=== PATIENT | male | born 1960 | race Caucasian/White ===

== ENCOUNTER 2023-11-12 08:04 | Inpatient (IN) | payer OTHER, SELFPAY ==
[2023-11-12 08:22] VITALS: BP 138/104
[2023-11-12 08:25] VITALS: BP 119/87
--- NOTE | 2023-11-12 08:40 | W.PN.CARDCBS ---
Addendum entered and electronically signed by Luci Berry PA-C 11/12/23 15:40:
ECG 2 hours after initial dose of Tikosyn 500 mcg q 12 hours reviewed. Patient with underlying RBBB and in Afib. QTc overall stable and will continue with Tikosyn 500 mcg q 12 hours.
Addendum entered and electronically signed by Fredrick Galo MD 11/12/23 12:09:
I saw and examined the patient.
The TALENT ACQUISITION SOURCER or PA's note was reviewed and I agree with the note.
Comment: General: Well developed, well nourished in NAD.
Neck: Supple, no JVD, HJR, carotids +2 B/L, no bruits bilaterally.
Heart: Non displaced PMI, Irreg, no murmurs, No S3, S4, no rubs.
Lungs: Clear to auscultation bilaterally, no wheeze, rhonchi, rubs bilaterally,
normal expiratory phase.
Extremities: No clubbing, cyanosis or edema bilaterally.
Neuro: Grossly nonfocal, awake, alert and oriented x3.
Allen has a history of persistent atrial fibrillation status post PVI in January 2015 and April 2022 on chronic Eliquis, chronic diastolic CHF, sleep apnea, diabetes, hypertension, hyperlipidemia, alcoholic cirrhosis. He presents for Tikosyn loading.
He denies chest pain or shortness of breath or palpitations. Will initiate Tikosyn and follow QT interval. Will plan on cardioversion on 11/14 if remains in A-fib
Original Note:
Today's Communication / Plan
-
Await labs then will order Tikosyn
Impression / Plan
-
Primary Care Provider: Dr. Jj Hassan
Primary Financial Project Manager: Dr. Reynold Landeros
IMPRESSION:
Direct admission for Tikosyn loading
Persistent Afib
s/p PVI 01/2015
s/p PVI 04/2022
Previous amiodarone therapy, did not maintain SR after CV 09/2020
Chronic Eliquis OAC
missed dose 10/11/23, none since
Chronic HFimpEF
h/o NICM EF as low as 35% by echo in 2013, most recently EF 55% by echo 12/14/21
h/o sigmoid colon cancer with resection and chemotherapy completed 01/2021
Obstructive sleep apnea on CPAP
Obesity
Type 2 diabetes
Hypertension
Hyperlipidemia
Former smoker
History of alcoholic cirrhosis with grade 1 esophageal varices
History of gastric ulcer
ECHO 12/2017: EF 55-60%, mild cLVH, no significant valvular disease
ECHO 07/08/20: EF 65-70%, mild concentric LVH, hyperdynamic LV function, mild MR, mild to moderate TR, moderate-severe pulm htn, estimated pulm artery pressure of 66mmHg, mildly dilated aorta at 3.8cm
Echo 12/14/21: EF 55-60%, mild MR, mild to mod eccentric TR with PAP 41 mmHg, mildly dilated Sinus of Valsalva 3.8 cm
PLAN:
-Patient came to for direct admission for Tikosyn loading for persistent Afib. Patient with previous PVI in 2014 and 2021. He was on amiodarone in 2019, but failed to maintain SR after a CV and so when he recurred with Afib at his 10/31/23 office
visit the plan was to try Tikosyn instead. Patient held Eliquis for chemotherapy port removal 10/11/23, but no missed doses since then.
-QTc 515 ms on admission ECG in the setting of IC RBBB and Afib with RVR.
-Pending results of [facility] will calculate CrCl and dose Tikosyn accordingly. Reviewed with patient and son the plans for Tikosyn loading and QTc monitoring.
-Cont Eliquis 5 mg BID. He missed a dose for chemo port removal 10/11/23, but no missed doses since then
-Follow HRs with Tikosyn loading, for now outpatient doses of Coreg 25 mg BID and Cardizem CD 180 mg daily have been continued
-Hgb stable at 15.3 with h/o anemia a colon cancer with sigmoid resection in 2019
-Will plan for CV 11/14/23 if he fails to convert with Tikosyn loading
Progress Note - Financial Project Manager
Subjective
Date of Service: November 12, 2023
No palpitations
Objective
Labs:
Ordered and pending
Vital Signs and I&O:
Vital Signs
Temp Resp Pulse Ox
98.2 F 20 98
11/12/23 08:35 11/12/23 08:35 11/12/23 08:35
Vital Signs
Temp Resp Pulse Ox
98.2 F 20 98
11/12/23 08:35 11/12/23 08:35 11/12/23 08:35
Physical Exam
Physical Exam
GEN: NAD. AAO x3
HEENT: EOMI
LUNGS: CTA B/L
CV: Irreg irreg
ABD: soft, BS+
EXT: No edema B/L LE
NEURO: Gross non-focal
SKIN: Warm, pink, dry. No rash
[2023-11-12 09:10] LABS: Hematocrit 45.3 % (39.0-52.0); Hemoglobin 15.3 g/dL (13.0-18.0); Mean Corp Hgb Conc. 33.8 g/dL (33.0-37.0); Mean Corpuscular Hgb 32.5 pg (27.0-31.0); Mean Corpuscular Volume 96.2 fL (80.0-94.0); Platelet Count 213 10^3/uL (130-400); Red Blood Cell Count 4.71 10^6/uL (4.70-6.10); Red Cell Dist. Width 13.2 % (11.5-14.5); White Blood Cell Count 6.9 10^3/uL (4.8-10.8)
[2023-11-12 09:20] LABS: ALT (SGPT) 21 U/L (0-50); AST (SGOT) 21 U/L (17-59); Albumin 4.3 g/dl (3.5-5.0); Alkaline Phosphatase 79 U/L (38-126); Blood Urea Nitrogen 30 mg/dl (9-20); Calcium 9.1 mg/dl (8.4-10.2); Carbon Dioxide 29 mmol/L (22-30); Chloride 101 mmol/L (98-107); Glucose 118 mg/dl (70-99); Sodium 138 mmol/L (135-145); Total Bilirubin 0.6 mg/dl (0.2-1.3); Total Protein 7.4 g/dl (6.3-8.2); eGFR 56.13
[2023-11-12 09:29] VITALS: BMI 34.1
[2023-11-12 09:31] LABS: Glucose - Point of Care 98 mg/dl (70-99)
--- NOTE | 2023-11-12 09:36 | W.CARD.TIKOS ---
Initiate Tikosyn
-
I verify that the patient has not taken any verapamil (Isoptin/Calan), ketoconazole (Nizoral), cimetidine (Tagamet), trimethoprim (Trimpex), trimethoprim/sulfamethoxazole (Bactrim), megesterol (Megace), prochlorperazine (Compazine),
hydrochlorothiazide (HCTZ), dolutegravir (Tivicay) or any Class I or Class III anti-arrhythmic within the last three days
AND
I verify that the patient has not taken amiodarone within the last THREE months, or that the patient's amiodarone plasma concentration is <0.3 mcg/mL.
Creatinine 1.4 mg/dL (0.7-1.3) H 11/12/23 08:59
CrCl 86 calculated by me using age 63, wt 251 lbs and Cre 1.4. WE.
Does patient have a Ventricular Conduction Abnormality: Yes
I have assessed the baseline QTc interval (using QT for heart rate less than 60 bpm) and deemed the patient is appropriate for Dofetilide therapy. I understand that Tikosyn is contraindicated if the QTc is >440msec (500msec in patients with
ventricular conduction abnormalities).
Baseline QTc (in msec): 515
QTc interval is greater than 440msec without conduction abnormality OR greater than 500msec with a conduction abnormality, but acceptable to proceed per Cardiology attending.
Reason for Administration with Prolonged QTc: Bundle Branch Block and Other Atrial Arrhythmia
Ordering Physician: Chris Mazariegos
[2023-11-12 09:37] VITALS: BMI 34.1
[2023-11-12] MEDS: ALDACTONE PO (09:39)
[2023-11-12] MEDS: COREG PO (09:39)
[2023-11-12] MEDS: CARDIZEM CD PO (09:39)
[2023-11-12] MEDS: ELIQUIS PO (09:40)
[2023-11-12] MEDS: PROTONIX PO (09:40)
[2023-11-12] MEDS: GLUCOTROL PO (09:40)
[2023-11-12] MEDS: LASIX PO (09:40)
[2023-11-12] MEDS: COZAAR PO (09:40)
[2023-11-12] MEDS: KCL PO (09:40)
--- NOTE | 2023-11-12 09:49 | PTCARENOTE ---
Pt arrived for tikosyn admission. Oriented to room and unit. AOx3, no complaints of pain or discomfort. Educated on tikosyn. Call bright within reach.
[2023-11-12] MEDS: TIKOSYN 500 MCG PO ×2 (10:07→21:07)
--- NOTE | 2023-11-12 10:08 | CM ---
Addendum entered by Cherie Cleaning 11/12/23 10:39:
Telephone call to Gilmer Olivas, ( ) to check on co-pay for Dofetilide 500 mcg bid. Gilmer Olivas states he needs a prior auth. Gilmer Olivas faxed prior auth form to Cardiology Office. Updated P.A.
Original Note:
Reviewed chart. Met with Mr. Biggs to review discharge plans. He states prior to admission he resides with his spouse in a one story home with three steps to enter. He states prior to admission he was independent with ambulation and adls. He
states he has a CPAP Machine at home and no other DME. He states he has a prescription plan and uses [facility]. Will need a three day supply of Dofetilide to go to the [facility] to take home with him. Will check to see if his pharmacy has
Dofetilide in stock. Medical work-up in progress. The discharge plan is to return home with his spouse when medically stable.
[2023-11-12 11:25] VITALS: BP 105/63
--- NOTE | 2023-11-12 15:40 | W.PN.UPDATE ---
Update Note
Progress Note Update
ECG 2 hours after initial dose of Tikosyn 500 mcg q 12 hours reviewed. Patient with underlying RBBB and in Afib. QTc overall stable and will continue with Tikosyn 500 mcg q 12 hours.
[2023-11-12 16:24] VITALS: BP 107/64
[2023-11-12] MEDS: LASIX 80 MG PO (17:24)
[2023-11-12 17:26] LABS: Glucose - Point of Care 74 mg/dl (70-99)
[2023-11-12] MEDS: GLUCOPHAGE XR EXTENDED RELEASE 1500 MG PO (18:31)
[2023-11-12 19:15] VITALS: BP 112/71
[2023-11-12] MEDS: COREG 25 MG PO (19:52)
[2023-11-12] MEDS: ELIQUIS 5 MG PO (19:53)
[2023-11-12 22:27] VITALS: BP 105/72
[2023-11-12 22:29] LABS: Glucose - Point of Care 74 mg/dl (70-99)
[2023-11-12 23:35] LABS: Glucose - Point of Care 100 mg/dl (70-99)
[2023-11-13] VITALS (9 sets, daily range): BP systolic 86–110; BP diastolic 51–81; BMI 34.1
--- NOTE | 2023-11-13 00:02 | PTCARENOTE ---
Pt received at start of shift, HR A-fib 80s-100. BP stable. Pt OOB watching [employer] on phone. 2nd dose of Tikosyn administered as ordered, QTc 548. Pt denies any palpitations or lightheadedness/dizziness at this time. Pt informed to notify RN if any
changes, call bright within reach.
[2023-11-13 04:24] LABS: Blood Urea Nitrogen 29 mg/dl (9-20); Carbon Dioxide 29 mmol/L (22-30); Chloride 99 mmol/L (98-107); Estimated Creatinine Clearance 75 ml/min; Glucose 121 mg/dl (70-99); Potassium 3.8 mmol/L (3.5-5.1); Sodium 137 mmol/L (135-145); eGFR > 60.00
[2023-11-13 07:15] LABS: Glucose - Point of Care 99 mg/dl (70-99)
--- NOTE | 2023-11-13 07:46 | W.PN.CARDCBS ---
Addendum entered and electronically signed by Fredrick Galo MD 11/13/23 11:05:
I saw and examined the patient.
The HUB INVENTORY SPECIALIST or PA's note was reviewed and I agree with the note.
Comment: General: Well developed, well nourished in NAD.
Neck: Supple, no JVD, HJR, carotids +2 B/L, no bruits bilaterally.
Heart: Non displaced PMI, irregular, no murmurs, No S3, S4, no rubs.
Lungs: Clear to auscultation bilaterally, no wheeze, rhonchi, rubs bilaterally,
normal expiratory phase.
Extremities: No clubbing, cyanosis or edema bilaterally.
Neuro: Grossly nonfocal, awake, alert and oriented x3.
Tolerating Tikosyn load. For cardioversion in a.m. if remains in A-fib and discharge after fifth dose of Tikosyn
Original Note:
Today's Communication / Plan
-
Cont Tikosyn loading
CV in AM
Impression / Plan
-
Primary Care Provider: Dr. Jj Hassan
Primary Bank Guard: Dr. Reynold Landeros
IMPRESSION:
Direct admission for Tikosyn loading
Persistent Afib
s/p PVI 01/2015
s/p PVI 04/2022
Previous amiodarone therapy, did not maintain SR after CV 09/2020
Chronic Eliquis OAC
missed dose 10/11/23, none since
Chronic HFimpEF
h/o NICM EF as low as 35% by echo in 2013, most recently EF 55% by echo 12/14/21
h/o sigmoid colon cancer with resection and chemotherapy completed 01/2021
Obstructive sleep apnea on CPAP
Obesity
Type 2 diabetes
Hypertension
Hyperlipidemia
Former smoker
History of alcoholic cirrhosis with grade 1 esophageal varices
History of gastric ulcer
ECHO 12/2017: EF 55-60%, mild cLVH, no significant valvular disease
ECHO 07/08/20: EF 65-70%, mild concentric LVH, hyperdynamic LV function, mild MR, mild to moderate TR, moderate-severe pulm htn, estimated pulm artery pressure of 66mmHg, mildly dilated aorta at 3.8cm
Echo 12/14/21: EF 55-60%, mild MR, mild to mod eccentric TR with PAP 41 mmHg, mildly dilated Sinus of Valsalva 3.8 cm
PLAN:
-QTc stable at 548 ms after 2nd dose of Tikosyn 500 mcg q 12 hours given 11/12/23 PM.
-Cont with Tikosyn 500 mcg q 12 hours. 5th dose is scheduled for 11/14/23 AM.
-Cre is slightly improved and is back to baseline of 1.3 on 11/13/23
-Cont Eliquis 5 mg BID. He missed a dose for chemo port removal 10/11/23, but no missed doses since then
-Follow HRs with Tikosyn loading, for now outpatient doses of Coreg 25 mg BID and Cardizem CD 180 mg daily have been continued
-Hgb stable at 15.3 with h/o anemia a colon cancer with sigmoid resection in 2019
-Will plan for CV 11/14/23 if he fails to convert with Tikosyn loading
HPI: Patient came to for direct admission for Tikosyn loading for persistent Afib. Patient with previous PVI in 2014 and 2021. He was on amiodarone in 2019, but failed to maintain SR after a CV and so when he recurred with Afib at his 10/31/23
office visit the plan was to try Tikosyn instead. Patient held Eliquis for chemotherapy port removal 10/11/23, but no missed doses since then.
Progress Note - Bank Guard
Subjective
Date of Service: November 13, 2023
He feels well, uneventful night
Objective
Labs:
11/12/23 08:59
11/13/23 03:49
Labs
Hgb 15.3 g/dL (13.0-18.0) 11/12/23 08:59
Hct 45.3 % (39.0-52.0) 11/12/23 08:59
Plt Count 213 10^3/uL (130-400) 11/12/23 08:59
Sodium 137 mmol/L (135-145) 11/13/23 03:49
Potassium 3.8 mmol/L (3.5-5.1) 11/13/23 03:49
BUN 29 mg/dl (9-20) H 11/13/23 03:49
Creatinine 1.3 mg/dL (0.7-1.3) 11/13/23 03:49
Glucose 121 mg/dl (70-99) H 11/13/23 03:49
Vital Signs and I&O:
Vital Signs
Temp Pulse Resp BP Pulse Ox
97.8 F 87 18 105/77 92
11/13/23 03:44 11/13/23 07:13 11/13/23 03:44 11/13/23 07:13 11/13/23 03:44
Vital Signs
Temp Pulse Resp BP Pulse Ox
97.8 F 87 18 105/77 92
11/13/23 03:44 11/13/23 07:13 11/13/23 03:44 11/13/23 07:13 11/13/23 03:44
Physical Exam
Physical Exam
GEN: NAD. AAO x3
HEENT: EOMI
LUNGS: CTA B/L
CV: Irreg irreg
ABD: soft, BS+
EXT: No edema B/L LE
NEURO: Gross non-focal
SKIN: Warm, pink, dry. No rash
[2023-11-13] MEDS: CARDIZEM CD 180 MG PO (08:16)
[2023-11-13] MEDS: TIKOSYN 500 MCG PO (08:16)
[2023-11-13] MEDS: COZAAR 50 MG PO (08:16)
[2023-11-13] MEDS: KCL 20 MEQ PO (08:17)
[2023-11-13] MEDS: COREG 25 MG PO ×2 (08:17→20:41)
[2023-11-13] MEDS: ALDACTONE 12.5 MG PO (08:17)
[2023-11-13] MEDS: GLUCOTROL 5 MG PO (08:17)
[2023-11-13] MEDS: ELIQUIS 5 MG PO ×2 (08:17→20:41)
[2023-11-13] MEDS: PROTONIX 40 MG PO (08:17)
[2023-11-13] MEDS: LASIX 80 MG PO ×2 (08:17→16:24)
--- NOTE | 2023-11-13 08:24 | PTCARENOTE ---
Rec'd pt from prev nsg shift AAOx3 w/no c/o CP or SOB. Pt's VS stable w/BP on the lower side which pt states is his baseline. PO meds administered this AM incl PO Tikosyn as ordered. EKG ordered at 1020 to follow up on pt's QTc 2 hrs post dose. Pt
OOB, amb freq in room & to the BR. Pt w/call bright within reach & no addtl needs at this time.
[2023-11-13 12:07] LABS: Glucose - Point of Care 97 mg/dl (70-99)
--- NOTE | 2023-11-13 12:58 | CM ---
Addendum entered by Cherie Cleaning 11/13/23 13:12:
Reviewed co-pay of $15.00 a month with Mr. Biggs. He is agreeable to the co-pay.
Original Note:
Reviewed chart. Met with Mr Biggs to review discharge plans. Prior Auth has been completed. Telephone call to [facility] to check if they have it in stock. [facility] does not have it in stock but ordered and should in tomorrow evening. Telephone call to Gilmer "Nati"Brendon, ([phone]) to check on co-pay for Dofetilide 500 mcg bid. The co-pay for one month supply would be $15.00 a month. Reviewed co-pay with Mr. Biggs. He will need a three day supply of Dofetilide from [facility] to go home with him.
Prior to admission he resides with his spouse in a one story home with three steps to enter. Prior to admission he was independent with ambulation and adls He has a CPAP Machine at home He has a prescription plan with Gilmer Olivas and uses [facility]. Medical work-up in progress. The discharge plan is to return home with his spouse when medically stable.
[2023-11-13] MEDS: GLUCOPHAGE XR EXTENDED RELEASE 1500 MG PO (16:24)
[2023-11-13 17:44] LABS: Glucose - Point of Care 78 mg/dl (70-99)
--- NOTE | 2023-11-13 19:00 | PTCARENOTE ---
Pt's QTc post Tikosyn earlier today was 569. Dr Galo notified & pt's Tikosyn decreased to 250 mcg PO BID starting tonight. Ad vised oncoming RN of dose change. Telephone order sent to pharmacy. Plan of care ongoing.
[2023-11-13] MEDS: TIKOSYN 250 MCG PO (20:41)
[2023-11-13 21:55] LABS: Glucose - Point of Care 101 mg/dl (70-99)
--- NOTE | 2023-11-13 23:34 | PTCARENOTE ---
Pt received at start of shift, HR SR/ST 80s-100s. 4th Tikosyn dose given, EKG 2 hours after - QTc 558. Reinforced antiarrhythmic nature of Tikosyn and possible QT prolongation. Pt states understanding. Pt denies any pain, fluttering in chest, or
lightheadedness/dizziness at this time. Pt informed to notify RN if any changes, call bright within reach.
Pt appears to be in Sinus Tach since prior to shift change. Strip placed in chart.
--- NOTE | 2023-11-14 04:27 | DOWNTIME ---
There was a [employer] Client Jewelry Technician Downtime on 11/14/2023 from 0111 to 11/14/2023 at 0405. Downtime documentation of patient's care, including medication administrations, has been reconciled in the electronic record per guidelines. Refer to the
patient's paper chart under the miscellaneous tab to see printed paper medication records and downtime forms.
[2023-11-14 04:57] VITALS: BP 104/75
[2023-11-14 07:40] VITALS: BP 102/79
[2023-11-14 07:40] LABS: Glucose - Point of Care 100 mg/dl (70-99)
--- NOTE | 2023-11-14 08:00 | PTCARENOTE ---
Pt received from previous shift RN. KIM in chair. comfortable. HR SR/ST 80s-100s. 5th Tikosyn dose given, EKG performed. Intermittently SR and then A tach. possible cardioversion today. will continue to monitor.
--- NOTE | 2023-11-14 08:27 | W.PN.CARDCBS ---
Addendum entered and electronically signed by Joselin Fontana, 11/14/23 16:25:
Reviewed post cardioversion EKG with EP Dr. Landeros. Okay to continue Tikosyn at current dose, 250 mg twice daily. Outpatient cardiac follow-up arranged. Discharge home today
Addendum entered and electronically signed by Joselin Fontana DO 11/14/23 11:14:
I saw and examined the patient.
The Corporate Development Associate's note was reviewed and I agree with the note.
Comment: Seen and examined. Patient is n.p.o. awaiting cardioversion. Had his fifth dose of Tikosyn and otherwise anxious to return home
GEN: NAD. AAO x3
HEENT: EOMI
LUNGS: CTA B/L
CV: Irreg irreg
ABD: soft, BS+
EXT: No edema B/L LE
Plan:
Direct admission for Tikosyn for persistent atrial fibrillation/atrial tachycardia
-Tikosyn dose reduced due to QT prolongation
-EKG repeated this morning and patient is in an atrial tachycardia
-Plan is for CV 11/14/23 and will check ECG post-CV
-Continue Coreg 25 mg BID and Cardizem CD 180 mg daily have been continued
-Cont Eliquis 5 mg BID. He missed a dose for chemo port removal 10/11/23, but since, denies interruption or missed doses
-Hgb stable at 15.3 with h/o anemia a colon cancer with sigmoid resection in 2019
-D/C to home following CV
Original Note:
Today's Communication / Plan
-
CV today
Recheck ECG afterwards and adjust Tikosyn, Cardizem and Coreg as needed
Impression / Plan
-
Primary Care Provider: Dr. Jj Hassan
Primary Postie: Dr. Reynold Landeros
IMPRESSION:
Direct admission for Tikosyn loading
Persistent Afib
s/p PVI 01/2015
s/p PVI 04/2022
Previous amiodarone therapy, did not maintain SR after CV 09/2020
Chronic Eliquis OAC
missed dose 10/11/23, none since
Chronic HFimpEF
h/o NICM EF as low as 35% by echo in 2013, most recently EF 55% by echo 12/14/21
h/o sigmoid colon cancer with resection and chemotherapy completed 01/2021
Obstructive sleep apnea on CPAP
Obesity
Type 2 diabetes
Hypertension
Hyperlipidemia
Former smoker
History of alcoholic cirrhosis with grade 1 esophageal varices
History of gastric ulcer
ECHO 12/2017: EF 55-60%, mild cLVH, no significant valvular disease
ECHO 07/08/20: EF 65-70%, mild concentric LVH, hyperdynamic LV function, mild MR, mild to moderate TR, moderate-severe pulm htn, estimated pulm artery pressure of 66mmHg, mildly dilated aorta at 3.8cm
Echo 12/14/21: EF 55-60%, mild MR, mild to mod eccentric TR with PAP 41 mmHg, mildly dilated Sinus of Valsalva 3.8 cm
PLAN:
-QTc increased to 569 ms on ECG after 3rd dose of Tikosyn 500 mcg and so dose was lowered to 250 mcg q 12 hours. Tikosyn 250 mcg was given as 4th dose on 11/13/23 PM was persistently prolonged at 558 ms. ECG 11/14/23 AM after 5th dose of Tikosyn shows
QTc 539 ms. This is all in the setting of cRBBB and Afib/tach.
-Plan is for CV 11/14/23 and will check ECG post-CV
-Follow HRs with Tikosyn loading, for now outpatient doses of Coreg 25 mg BID and Cardizem CD 180 mg daily have been continued
-Cont Eliquis 5 mg BID. He missed a dose for chemo port removal 10/11/23, but no missed doses since then
-Hgb stable at 15.3 with h/o anemia a colon cancer with sigmoid resection in 2019
-D/C to home following CV
HPI: Patient came to for direct admission for Tikosyn loading for persistent Afib. Patient with previous PVI in 2014 and 2021. He was on amiodarone in 2019, but failed to maintain SR after a CV and so when he recurred with Afib at his 10/31/23
office visit the plan was to try Tikosyn instead. Patient held Eliquis for chemotherapy port removal 10/11/23, but no missed doses since then.
Progress Note - Postie
Subjective
Date of Service: November 14, 2023
He feels well
Objective
Labs:
11/12/23 08:59
11/13/23 03:49
Labs
Hgb 15.3 g/dL (13.0-18.0) 11/12/23 08:59
Hct 45.3 % (39.0-52.0) 11/12/23 08:59
Plt Count 213 10^3/uL (130-400) 11/12/23 08:59
Sodium 137 mmol/L (135-145) 11/13/23 03:49
Potassium 3.8 mmol/L (3.5-5.1) 11/13/23 03:49
BUN 29 mg/dl (9-20) H 11/13/23 03:49
Creatinine 1.3 mg/dL (0.7-1.3) 11/13/23 03:49
Glucose 121 mg/dl (70-99) H 11/13/23 03:49
Vital Signs and I&O:
Vital Signs
Temp Pulse Resp BP Pulse Ox
97.2 F 92 18 104/75 94
11/14/23 07:45 11/14/23 05:15 11/14/23 07:45 11/14/23 04:57 11/14/23 07:45
Vital Signs
Temp Pulse Resp BP Pulse Ox
97.2 F 92 18 104/75 94
11/14/23 07:45 11/14/23 05:15 11/14/23 07:45 11/14/23 04:57 11/14/23 07:45
Intake & Output
11/12/23 11/13/23 11/14/23 11/15/23
06:59 06:59 06:59 06:59
Intake Total 960 / 960
Balance 960 / 960
Physical Exam
Physical Exam
GEN: NAD. AAO x3
HEENT: EOMI
LUNGS: CTA B/L
CV: Irreg irreg
ABD: soft, BS+
EXT: No edema B/L LE
NEURO: Gross non-focal
SKIN: Warm, pink, dry. No rash
[2023-11-14] MEDS: ELIQUIS 5 MG PO (09:37)
[2023-11-14] MEDS: GLUCOTROL 5 MG PO (09:38)
[2023-11-14] MEDS: PROTONIX 40 MG PO (09:38)
[2023-11-14] MEDS: CARDIZEM CD 180 MG PO (09:38)
[2023-11-14] MEDS: KCL 20 MEQ PO (09:39)
[2023-11-14] MEDS: LASIX 80 MG PO ×2 (09:39→15:30)
[2023-11-14] MEDS: COZAAR 50 MG PO (09:39)
[2023-11-14] MEDS: COREG 25 MG PO (09:39)
[2023-11-14] MEDS: TIKOSYN 250 MCG PO (09:47)
[2023-11-14] MEDS: ALDACTONE 12.5 MG PO (09:47)
[2023-11-14 11:00] VITALS: BP 107/80
[2023-11-14 11:55] LABS: Glucose - Point of Care 73 mg/dl (70-99)
--- NOTE | 2023-11-14 12:25 | CM ---
Reviewed chart. Telephone call to [facility] to check of they have Dofetilide 250 ,cg in stock. [facility] states they have one bottle in stock. He will need a three day script to go to [facility] for him to take home. Prior to admission he
resides with his spouse with three steps to enter. Prior to admission he was independent with ambulation and adls. He does have a CPAP Machine at home. Medical work-up in progress. The discharge plan is to return home with his spouse when
medically stable.
[2023-11-14 13:35] LABS: Glucose - Point of Care 76 mg/dl (70-99)
[2023-11-14 13:41] VITALS: BP 117/79
--- NOTE | 2023-11-14 13:52 | PTCARENOTE ---
patient sent down for cardioversion via wheelchair. tolerated, and brought back to room post procedure. in for d/c later today
--- NOTE | 2023-11-14 14:56 | W.DS.TRANS ---
DC Summary - Bandsaw Operator
-
Discharge Instructions:
Discharge Diagnosis/Procedures Tikosyn (dofetilide) loading for persistent
atrial fibrillation
Diet As tolerated
Activity Other activity
Driving Restrictions No driving for 24 hours
Bathing Restrictions None
Instructions:
Stand-Alone Forms:
Changes to Home Medications: Yes
Discharge Medications:
DC Medications w/original date entered in [employer]
adalimumab 80 mg/0.8 mL subcutaneous pen kit (Humira(CF) Pen Crohn's-[facility] Colitis-Hid Sup Strt) 40 mg SC Q2W Psoriasis 07/08/20
apixaban 5 mg tablet (Eliquis) 5 mg PO BID Blood clot prevention/tx 07/08/20
glipizide 5 mg tablet, extended release 24 hr 5 mg PO DAILY Diabetes 07/08/20
metformin 750 mg tablet,extended release 24 hr 1,500 mg PO DAILY@1700 Diabetes 07/08/20
omeprazole 40 mg capsule,delayed release 40 mg PO DAILY Gastrointestinal issue 07/08/20
losartan 50 mg tablet 50 mg PO DAILY Blood pressure 08/26/20
spironolactone 25 mg tablet 25 mg PO DAILY Heart Disease/Condition 08/26/20
carvedilol 25 mg tablet (Coreg) 25 mg PO BID Blood pressure 10/19/20
furosemide 80 mg tablet 80 mg PO BID@0800,1600 Fluid retention/Swelling 10/19/20
dofetilide 250 mcg capsule 250 mcg PO BID Arrhythmia #60 caps 11/14/23
Home Medication Changes
New to Tikosyn
Pending Results: No
[2023-11-14] MEDS: GLUCOPHAGE XR EXTENDED RELEASE 1500 MG PO (15:30)
--- NOTE | 2023-11-14 15:50 | PTCARENOTE ---
left with tikosyn pills and all instructions and med list. aware of additional Tikosyn script to be picked up. left via wheelchair.
--- NOTE | 2023-11-14 16:22 | ITS.CL.CARDI ---
[facility] - Cardioversion
Cardioversion
Procedure Report:
Date of Procedure: 11/14/23
Procedure: Cardioversion
Indication: Symptomatic atrial tachycardia
Performing Physician: Joselin Fontana DO [facility]
Technique: The patient was brought to the holding area. Signed informed consent was obtained. A time out was called and performed. The patient was anesthetized by the anesthesia service. Anticoagulation status was reviewed and appropriate. R2 pads
were placed anteriorly and posteriorly. A 200 J synchronized biphasic shock restored normal sinus rhythm without significant bradycardia. There were no complications.
Conclusion: Uncomplicated cardioversion from atrial tachycardia to sinus rhythm.
Recommendation: Routine post cardioversion care. Continue terminologist anticoagulation.
== END 2023-11-14 16:05 | disposition home or self-care (01) | DRG 309 ==
LOC: IVU 08:04
PROVIDERS: Internal Medicine Cardiovascular Disease; Physician Assistant Medical; ADMITTING PHYSICIAN Internal Medicine Cardiovascular Disease
PROC: 5A2204Z Restoration of Cardiac Rhythm, Single (ICD-10-PCS; 2023-11-14)
DX: I48.19 Other persistent atrial fibrillation (principal); I50.32 Chronic diastolic (congestive) heart failure; Z79.01 Long term (current) use of anticoagulants; I11.0 Hypertensive heart disease with heart failure; E78.5 Hyperlipidemia, unspecified; E66.9 Obesity, unspecified; Z68.34 Body mass index [BMI] 34.0-34.9, adult; Z87.891 Personal history of nicotine dependence
CPT/HCPCS: 80048; 80053; 82962; 83735; 85027; 92960; 93005

== ENCOUNTER → 2023-11-23 14:58 | Outpatient (REF) | payer OTHER, SELFPAY | LOC: RCS 14:58 | PROVIDERS: ATTENDING PHYSICIAN Nuclear Medicine Nuclear Cardiology; FAMILY PHYSICIAN Internal Medicine | DX: I48.0 Paroxysmal atrial fibrillation (principal); I50.9 Heart failure, unspecified | CPT/HCPCS: 93306 ==

== ENCOUNTER → 2024-02-14 06:24 | Day surgery (SDC) | payer OTHER, SELFPAY ==
[2024-02-14 07:17] LABS: Glucose - Point of Care 101 mg/dl (70-99)
== END ==
LOC: GI 06:24
PROVIDERS: ATTENDING PHYSICIAN Internal Medicine Gastroenterology
DX: Z12.11 Encounter for screening for malignant neoplasm of colon (principal); K57.30 Diverticulosis of large intestine without perforation or abscess without bleeding; K62.1 Rectal polyp; K64.8 Other hemorrhoids; Z85.038 Personal history of other malignant neoplasm of large intestine; Z98.0 Intestinal bypass and anastomosis status
CPT/HCPCS: 45380; 88305; 82962

== ENCOUNTER → 2024-07-28 13:11 | Outpatient (REF) | payer OTHER, SELFPAY | LOC: RAD 13:11 | PROVIDERS: ATTENDING PHYSICIAN Internal Medicine Hematology & Oncology; FAMILY PHYSICIAN Internal Medicine | DX: C18.7 Malignant neoplasm of sigmoid colon (principal); Z45.2 Encounter for adjustment and management of vascular access device | CPT/HCPCS: 71260; 74177; Q9967 ==

== ENCOUNTER → 2024-08-04 14:57 | Outpatient (REF) | payer OTHER, SELFPAY | LOC: RCS 14:57 | PROVIDERS: ATTENDING PHYSICIAN Nuclear Medicine Nuclear Cardiology; FAMILY PHYSICIAN Internal Medicine | DX: I50.9 Heart failure, unspecified (principal); I48.0 Paroxysmal atrial fibrillation | CPT/HCPCS: 93306 ==

== ENCOUNTER → 2024-09-11 14:46 | Outpatient (REF) | payer OTHER, SELFPAY | LOC: HWRAD 14:46 | PROVIDERS: ATTENDING PHYSICIAN Internal Medicine Critical Care Medicine; FAMILY PHYSICIAN Internal Medicine | DX: R91.1 Solitary pulmonary nodule (principal) | CPT/HCPCS: 71250 ==

== ENCOUNTER 2024-10-06 06:23 | Day surgery (SDC) | payer OTHER, SELFPAY ==
[2024-09-30 10:43] LABS: INR 1.06; PT 14.1 Sec (11.4-14.6)
[2024-09-30 10:44] LABS: APTT 33.2 Sec (23.4-35.0)
[2024-09-30 14:08] VITALS: BMI 33.7
[2024-10-06] VITALS (10 sets, daily range): BP systolic 95–145; BP diastolic 75–105; BMI 34.2; BMI 33.7
[2024-10-06 09:15] LABS: Glucose - Point of Care 178 mg/dl (70-99)
[2024-10-06 10:31] LABS: Glucose - Point of Care 140 mg/dl (70-99)
--- NOTE | 2024-10-06 11:39 | SUR.PHASEI ---
Called into GI room and updated on Dr. Arellano's pt.'s status. Sat's 86-93% on RA. Using IS, denies feeling SOB. Okay to move to [facility].
== END 2024-10-06 12:40 | disposition home or self-care (01) ==
LOC: SDS 06:23
PROVIDERS: ATTENDING PHYSICIAN Internal Medicine Critical Care Medicine; FAMILY PHYSICIAN Internal Medicine
DX: R91.1 Solitary pulmonary nodule (principal); D14.31 Benign neoplasm of right bronchus and lung; J18.9 Pneumonia, unspecified organism
CPT/HCPCS: 31629; 31624; 31623; 31627; 88173; 88305; 36415; 71045; 76000; 82962; 85610; 85730; 87015; 87070; 87102; 87116; 87205; 88112; 94002; 94640; C1887

== ENCOUNTER 2024-11-03 09:50 | Emergency (ER) | payer OTHER, SELFPAY ==
[2024-11-03] VITALS (12 sets, daily range): BP systolic 81–127; BP diastolic 57–101
--- NOTE | 2024-11-03 11:32 | ED.GENMED ---
History of Present Illness
General
Chief Complaint: Musculo-Skeletal Complaint
Source: patient
Exam Limitations: none
Time Seen by Provider: 11/03/24 11:25
History of Present Illness
History of Present Illness:
See MDM
Past History
Past History
ED Past Medical History: HTN and Other (Paroxysmal atrial fib status post ablation, CHF with diastolic dysfunction, recovered cardiomyopathy, pulmonary hypertension mild, hypertension, possible obstructive sleep apnea, previous history of alcohol
abuse but has been abstinent)
ED Past Surgical History: None
Social History
Tobacco: Former smoker
Alcohol: Former
Personal:
Living: with family
Employment: Employed
Family History
Family History: Other (Mother with COPD)
Phy Exam
Physical Exam
Physical Exam:
See MDM
Course
Orders/Labs/Results
Orders:
Orders
11/03/24 10:20
CR Shoulder, Trauma - Right Urgent
Comment:
Reason For Exam: Trauma
11/03/24 11:37
Propofol [Diprivan] 20 ml .ROUTE .STK-MED
11/03/24 12:08
CR Shoulder - Right 1 View Urgent
Comment:
Reason For Exam: post-reduction
Vital Signs
Initial and Last Documented VS:
Initial Vital Signs
Temp
98.0 F
11/03/24 10:17
Last Documented Vital Signs
Temp Pulse Resp BP Pulse Ox
98.3 F 101 20 91/76 99
11/03/24 12:31 11/03/24 12:31 11/03/24 12:31 11/03/24 12:31 11/03/24 12:31
Procedures
Moderate Sedation
ASA Risk Score: Class II
Chart and allergies reviewed: Yes
Consent for anesthesia obtained: Yes
Time out completed (validating right patient & procedure): Yes
Moderate Sedation Start Time(when first medication is given): 12:11
History of difficult intubation: No
Airway free of obstruction: Yes
Patient has a gag reflex: Yes
Patient is able to open mouth: Yes
Patient has no dentures: Yes
Patient has no loose teeth: Yes
Medication administered by Provider during Moderate Sedation: IV Propofol (mg)
Total dose administered: 100
Time drug administered: 12:11
Moderate Sedation Procedure End Time: 12:26
Joint/Fracture Reduction
Right Anterior Proximal Shoulder:
Indication for procedure:: Dislocation
Procedure completed by: Sher Dumont DO
Consent form signed: Yes
Joint reduced: with anesthesia sedation
Injury was: closed
Further treatement: needs re-check only
Post reduction exam: stable
Capillary Refill: normal
Normal distal neurovascular exam?: Yes
Peripheral Pulses: radial (right): 2+
MDM/Problems Addressed
Differential Diagnosis Includes:
HPI and MDM Narrative:
64-year-old male presenting for evaluation of right shoulder injury. He slipped on the ice and felt a pop in his shoulder. X-ray done prior to my evaluation showing evidence of anterior shoulder dislocation on exam, he is somewhat uncomfortable.
He cannot tolerate manipulation of the shoulder. He gave verbal consent for sedation and procedure and his signed the consent form
The distal extremity is otherwise neurovascularly intact. We did discuss the possibility of rotator cuff injury and outpatient follow-up with orthopedics
Physical exam
General: Well appearing and non-toxic
HEENT: protecting airway
Neck: appears supple
CV: No evidence of cyanosis
Resp: No accessory muscle use
Abd: Non-distended
Extremities: Step-off noted to right shoulder. Distal extremity otherwise neurovascularly intact
Neuro: alert
Psych: Normal affect
Skin: Intact
Problems Addressed including Acute and Chronic Conditions affecting care:
1. Anterior right shoulder dislocation
Acuity: acute
Prognosis: stable
Details: Will sedate and reduce
Updates
Patient tolerated sedation well and the dislocation was easily reduced
Differential Diagnosis (but not limited to): Shoulder fracture, dislocation
Testing considered:
Drug therapy (if applicable): OTC meds, please see d/c instruction regarding Rx drugs
Amount and/or Complexity of Data Reviewed
Clinical info obtained from: Patient
External data reviewed: N/A
Labs I independently reviewed (but not limited to): N/A
Radiology: X-ray independently reviewed: Right shoulder dislocation
Pulse Ox: not hypoxic
EKG independently reviewed: N/A
Felt Hat Flanging Operator: N/A
Critical Care: N/A
Risk of Complication:
Social Determinants of health: Good social support
Discussed with other providers: N/A
Escalation of Care includes Admit/Obs: After being observed in the Emergency Department, pt stable for discharge.
Occasional wrong word or 'sound a like' substitutions may have occurred due to the inherent limitations of voice recognition software. Read the chart carefully and recognize, using context, where substitutions have occurred.
*Critical Care Note
Total Time (30-74mins, 75-104mins- exclusive of procedures): Not Applicable
ED Attending Note
-
Portions of this chart may have been created with voice recognition software.� Occasional wrong word or��sound alike� substitutions may have occurred due to the inherent limitations of voice recognition software.
Discharge Plan
Departure
Patient Disposition: Home (Routine Discharge)
Date of Disposition: 11/03/24
Time of Disposition: 12:36
Patient with high blood pressure during this ER visit?: No
Discharge Problem:
Dislocation, shoulder, anterior
Instructions: Shoulder Dislocation, MODERATE SEDATION ADULT
Prescriptions:
No Action
metformin 750 MG tablet extended release 24 hr
1,500 mg PO DAILY@1700
omeprazole 40 MG capsule,delayed release(DR/EC)
40 mg PO DAILY
Humira(CF) Pen Rrtlrj-[id number]-IR 80 MG/0.8 ML pen injector kit
40 mg SC Q2W
Eliquis 5 MG tablet
5 mg PO BID
losartan 50 MG tablet
50 mg PO DAILY
spironolactone 25 MG tablet
12.5 mg PO DAILY
carvedilol [Coreg] 25 MG tablet
25 mg PO BID
furosemide 80 MG tablet
80 mg PO BID@0800,1600
dofetilide 250 mcg Capsule
250 mcg PO BID Qty: 60 11RF
prednisone 5 mg Tablet
5 mg PO DAILY
gabapentin 300 mg Capsule
300 mg PO TID
Ozempic 2 mg/dose (8 mg/3 mL) Pen Injector
2 mg SC SA
Referrals:
Josesito Grasia MD [Active] -
Activity Restrictions/Additional Instructions:
Please return for any worsening symptoms.
You may return at any time if you have further concerns.
Please follow up with your doctor at the first available appointment, preferably this week.
Please make an appointment with the orthopedist.
Thank you for choosing [facility].
Interventions
Interventions:
*General Assessment Last Done: 11/03/24 11:09
ED- Fall Risk Assessment Last Done: 11/03/24 11:09
ED-Musculoskeletal Assessment Last Done: 11/03/24 11:09
Discharge Date and Time
Print Language: LAO
== END 2024-11-03 14:22 | disposition home or self-care (01) ==
LOC: EMR 09:50
PROVIDERS: EMERGENCY PHYSICIAN Student in an Organized Health Care Education/Training Program; FAMILY PHYSICIAN Internal Medicine
DX: S43.084A Other dislocation of right shoulder joint, initial encounter (principal); W00.0XXA Fall on same level due to ice and snow, initial encounter; Z87.891 Personal history of nicotine dependence
CPT/HCPCS: 99285; 23650; 99152; 73020; 73030

== ENCOUNTER 2024-11-10 06:04 | Day surgery (SDC) | payer OTHER, SELFPAY ==
[2024-11-10] VITALS (12 sets, daily range): BP systolic 107–130; BP diastolic 61–87; BMI 33.5
[2024-11-10 06:50] LABS: Glucose - Point of Care 137 mg/dl (70-99)
[2024-11-10 08:35] LABS: ACT-LR - POC 318 Seconds (116-155)
[2024-11-10 08:57] LABS: ACT-LR - POC 308 Seconds (116-155)
[2024-11-10 09:05] LABS: Glucose - Point of Care 102 mg/dl (70-99)
--- NOTE | 2024-11-10 09:27 | ITS.CL.ABL ---
Deburring Machine Operator - Ablation
Ablation
Procedure Report:
ELECTROPHYSIOLOGIC STUDY AND POSSIBLE ABLATION
DATE: November 10, 2024
Primary Hospital Unit Coordinator: Dr. Chris Mazariegos
Primary care physician: Dr. Jj Hassan
INDICATION:
Symptomatic Atrial Fibrillation.
Persistent
HISTORY: See H and P.
Symptomatic AF, poorly controlled with attempted medical therapy. He initially underwent PVI in 2014 and overall has had excellent symptom control from atrial fibrillation until recently when he developed symptomatic persistent atrial fibrillation.
HAS-BLED: 1
Age
CHADSVASc: 3
HTN
DM
h/o CHF (recovered cardiomyopathy and HF)
CONTRIBUTING FACTORS:
Obstructive sleep apnea, incompletely treated (difficulty with compliance.)
Morbid obesity.
PRESENTING RHYTHM: AF
HISTORY: See H and P.
Symptomatic AF, poorly controlled with attempted medical therapy.
ANTIARRHYTHMIC DRUG:
Previously on amiodarone.
More recently on dofetilide
ANTICOAGULATION: Eliquis 5 mg twice daily
'TIME-OUT': called and confirmed.
SEDATION/ANESTHESIA: provided via the anesthesia department using general anesthesia.
PROCEDURE:
Ultrasound Guidance with real-time visualization of needle insertion and vessel patency performed by me for femoral venous Vascular Access. Images were taken and saved for the patient's permanent record. Imaging findings typical femoral venous
anatomy. Direct visualization of needle puncture into the femoral vein was observed and recorded.
A decapolar CS catheter was placed within the CS for mapping and pacing.
The intracardiac ultrasound catheter was positioned in the RA for continuous intracardiac ultrasound imaging.
Heparin bolus and infusion to target ACT at 300 -350 seconds was administered. Transseptal puncture was performed. This entailed advancing a sheath with dilator into the superior vena cava and withdrawing both (monitoring intracardiac ultrasound,
fluoroscopy and tip pressure) with the tip oriented toward the atrial septum. The fossa ovalis was engaged (indicated by sudden displacement of the sheath tip as well as tenting of the fossa seen on intracardiac ultrasound).
The Farapulse transseptal system was used. Left atrial catheter position was confirmed by echocardiographic imaging and fluoroscopy followed by RF delivery using the TapInfluence system resulting in successful LA access with pressure monitoring
demonstrating LA pressure waveforms (LA mean pressure 14 mm Hg). The sheath was advanced over the dilator and positioned in the left atrium.
The [employer]thing[employer] Grid multipolar mapping catheter was initially positioned through the transseptal sheath for high density mapping.
Geometry and voltage mapping was performed using the [employer] multipolar grid catheter. Ensite-X was utilized for three-dimensional electroanatomical mapping.
A 3-D map was created using Ensite-X in Voxel mode. A 3-D reconstructed CT image was compared to the 3-D Navex map to assist in anatomic evaluation, mapping and ablation.
There are 4 distinct pulmonary veins (LSPV, LIPV, RSPV, RIPV). High density three-dimensional electroanatomical mapping demonstrates reconnection at the left superior vein towards its superior posterior quadrant.
There is also a lack of complete posterior wall electrical isolation. An ablation strategy was undertaken to reisolate the left superior pulmonary vein and also completely isolate the posterior wall as an additional ablation lesion set. The
FarapStyleQ PFA catheter and system was used for cardiac ablation. Catheter positioning was guided and confirmed using both I.C.E. and fluoroscopy.
Pulsed electric field energy was used to isolate the left superior pulmonary vein and additional energy applications/additional ablation set was required to accomplish wide area circumferential ablation around each of the pulmonary vein sets and
additionally ablation to accomplish LA posterior wall ablation.
Remapping with the [employer] multipolar grid catheter found that all PVPs were eliminated at each vein demonstrating entrance block. Also pacing from the multipolar mapping catheter around the the circumference of the ostia was performed at 10 ma and
2.0 msec output to assess for exit block. This demonstrated electrical isolation at each of the pulmonary vein ostia (LSPV, LIPV, RSPV, RIPV). There is lack of complete posterior wall electrical isolation with continued mapping of atrial
electrograms at the posterior dome of the left atrium towards the left superior pulmonary vein and at the floor of the left atrium towards the antrum of the right inferior pulmonary vein. The ablation catheter was substituted and additional
applications were delivered to the targeted areas. Remapping was once again performed with the multipolar Worthington grid catheter demonstrating full electrical isolation of the posterior wall.
Programmed electrostimulation failed to induce any sustained arrhythmias.
I.C.E. :
Pre-Ablation Post-Ablation
LVEF: 50 % 50 %
WMA: none none
Pericardial effusion: none none
COMPLICATIONS:
None
SUMMARY:
- Mapping and ablation to isolate the PVs
- Additional AF ablation set after PVI.
- 3-D Electroanatomical Mapping
- Intracardiac Ultrasound
- Ultrasound guidance for vascular access
Post ablation, I discussed today's findings and results with the patient's .
RECOMMENDATIONS:
- Observe in monitored bed.
- Maintain oral anticoagulation.
- Continue dofetilide 250 mcg twice daily
If he continues to maintain sinus rhythm post ablation there can eventually be consideration for discontinuation of dofetilide
- Office visit with Dr. Chris Mazariegos has been arranged for January 06, 2025
- Continue cardiovascular care with Dr Mazariegos
Copy to:
Dr. Chris Mazariegos
Dr. Jj Hassan
[2024-11-10 10:12] LABS: Glucose - Point of Care 161 mg/dl (70-99)
--- NOTE | 2024-11-10 13:51 | W.PN.UPDATE ---
Update Note
Progress Note Update
Pt seen post PFA. Right groin site without ht/bleeding, oob ambulating, urinating without difficulty. Post EKG NSR 80s w/RBBB as before, no acute changes. Resume eliquis tonight at usual time. Continue tikosyn as before. Followup at [facility] as
scheduled. Home later today if groin site/tele remain stable.
== END 2024-11-10 14:13 | disposition home or self-care (01) ==
LOC: CATH 06:04
PROVIDERS: ATTENDING PHYSICIAN Internal Medicine Cardiovascular Disease; FAMILY PHYSICIAN Internal Medicine
DX: I48.19 Other persistent atrial fibrillation (principal); I11.0 Hypertensive heart disease with heart failure; E11.9 Type 2 diabetes mellitus without complications; I50.9 Heart failure, unspecified; I42.9 Cardiomyopathy, unspecified; G47.33 Obstructive sleep apnea (adult) (pediatric); E66.01 Morbid (severe) obesity due to excess calories; Z79.01 Long term (current) use of anticoagulants; Z79.4 Long term (current) use of insulin; Z79.85 Long-term (current) use of injectable non-insulin antidiabetic drugs; Z79.899 Other long term (current) drug therapy; Z79.84 Long term (current) use of oral hypoglycemic drugs; I45.10 Unspecified right bundle-branch block
CPT/HCPCS: C1732; C1894; C1730; C1892; C1759; 76937; 82962; 85347; 86850; 86900; 86901; 93005; 93656; 93657; C1733; C1766

== ENCOUNTER → 2025-07-21 13:23 | Outpatient (REF) | payer OTHER, SELFPAY | LOC: RAD 13:23 | PROVIDERS: ATTENDING PHYSICIAN Internal Medicine Hematology & Oncology; FAMILY PHYSICIAN Family Medicine | DX: R91.1 Solitary pulmonary nodule (principal) | CPT/HCPCS: 71250; 71260; 74177; Q9967 ==